=== PATIENT | male | born 1990 | race Caucasian/White ===

== ENCOUNTER 2018-10-09 19:52 | Emergency (ER) | payer MEDICAID, SELFPAY ==
--- NOTE | 2018-10-09 19:53 | W.ED.GENAD ---
Discharge Plan Disposition Patient Disposition: HOME Condition: Good Discharge Details Chief Complaint: OD/Poison Clinical Impression: Polysubstance abuse Reason For Visit: EDNA Primary Care Provider: Sheeba Joaquin ED Provider: Archie Osullivan Home Meds and New Rx's Prescriptions: No Action No Known Home Meds RF: 0 Discharge Instructions Instructions: Polysubstance Abuse (ED) Referrals: [facility] [Provider Group] Discharge Data Discharge Date/Time-TO BE ENTERED AT DEPARTURE: 10/09/18 21:08 Medical Decision Making <Raphael Peng MD - Last Filed: 10/21/18 23:01> 20:00 --28-year-old male here with altered mentation, presumed intoxication with polysubstance abuse. Patient admits using both heroin and cocaine. Potential for bath salt use as well. Patient is currently exhibiting what appears to be somewhat of a sympathomimetic toxidrome. Currently cooperative and agreeable to ED treatment. Plan to give Ativan 2 mg orally. Patient agreeable with this. Care signed out to Dr. Osullivan with plan to follow-up on UDS and reassess patient. HPI <Raphael Peng MD - Last Filed: 10/21/18 23:01> General Mode of arrival: ambulatory. Date/Time Provider Initiated Documentation: 10/09/18 19:52. Limitations to Documentation: no limitations. Information obtained by: patient. HPI Narrative: 28-year-old male with history of asthma, ADHD, presents with EMS with concern for potential substance abuse. Law enforcement had engaged with the patient prehospital called EMS given concern for intoxication. Patient admits to using both heroin and cocaine today. There is also concern to him is seen for potential bath salt use. No indication of trauma. Patient denies complaint. He has no pain at this time. Related Data Home Medications Medication Instructions Recorded Confirmed Unknown [No Known Home Meds] 10/09/18 10/09/18 Allergies Allergy/AdvReac Type Severity Reaction Status Date / Time No Known Allergies Allergy Unverified 10/09/18 21:05 Review of Systems <Raphael Peng MD - Last Filed: 10/21/18 23:01> Constitutional Denies body ache(s) ENT Denies dizziness Cardiovascular Denies chest pain and Denies dyspnea Respiratory Denies dyspnea Gastrointestinal Denies abdominal pain Musculoskeletal Denies arthralgias Neurologic Denies dizziness Psychiatric Denies hallucinations, Denies homicidal ideation and Denies suicidal ideation Exam <Raphael Peng MD - Last Filed: 10/21/18 23:01> Const General: cooperative and well developed Orientation: alert and awake [facility] Head: normocephalic and atraumatic Mouth: moist mucous membranes Eyes Conjunctivae: normal conjunctivae Sclera: normal sclerae Pupils: PERRL and pupil size bilaterally 3 Neck Neck: trachea midline and supple Resp Auscultation: clear to auscultation bilaterally, no rales, no rhonchi and no wheezes Cardio Jugular venous pressure: no JVD Rate: tachycardic Rhythm: regular rhythm GI Palpation: soft, not firm, no guarding, no masses, not rigid and nontender Skin General skin exam: no rashes or lesions noted Neuro General: alert, awake, oriented x3 and tone normal Extrem General: no edema Psych Appearance: grossly normal Speech and Movement: not agitated and pressured speech Mood: euphoric mood Affect: animated Attitude: cooperative Thought Content: no hallucinations Insight: insight good Judgment: fair Sign Out <Raphael Peng MD - Last Filed: 10/21/18 23:01> Sign Out Data: Sign Out Comment: follow-up uds. reassess patient for disposition. Last updated by Raphael Peng MD at 10/09/18 20:18 Post-Handoff Eval: Patient signed out to me for reevaluation. He had been brought in for possible drug overdose. Patient reports to me that he used cocaine this morning. Reports that he used heroin tonight. Denies other drugs other than the marijuana that he grows himself. He is very intermittent and cannot sit still but states that is just the way he is. He is awake and alert. His speech is normal. His gait is normal. He is oriented completely has capacity. He would like to go home. He is going to call for a ride. He is discharged with a friend in good condition.
[2018-10-09 19:54] VITALS: BP 137/75; PULSE 112; RESP 20; TEMP 37; O2SAT 95
[2018-10-09] MEDS: LORazepam 1 MG TAB 2 MG PO (19:57)
[2018-10-09 20:00] VITALS: RESP 18
--- NOTE | 2018-10-09 20:05 | ED.GENADUL_ITS ---
Discharge Plan Disposition Patient Disposition: HOME Condition: Good Discharge Details Chief Complaint: OD/Poison Clinical Impression: Polysubstance abuse Reason For Visit: EDNA Primary Care Provider: Sheeba Joaquin ED Provider: Archie Osullivan Home Meds and New Rx's Prescriptions: No Action No Known Home Meds RF: 0 Discharge Instructions Instructions: Polysubstance Abuse (ED) Referrals: [facility] [Provider Group] Discharge Data Discharge Date/Time-TO BE ENTERED AT DEPARTURE: 10/09/18 21:08 Medical Decision Making <Raphael Peng MD - Last Filed: 10/21/18 23:01> 20:00 --28-year-old male here with altered mentation, presumed intoxication with polysubstance abuse. Patient admits using both heroin and cocaine. Potential for bath salt use as well. Patient is currently exhibiting what appears to be somewhat of a sympathomimetic toxidrome. Currently cooperative and agreeable to ED treatment. Plan to give Ativan 2 mg orally. Patient agreeable with this. Care signed out to Dr. Osullivan with plan to follow-up on UDS and reassess patient. HPI <Raphael Peng MD - Last Filed: 10/21/18 23:01> General Mode of arrival: ambulatory . Date/Time Provider Initiated Documentation: 10/09/18 19:52 . Limitations to Documentation: no limitations . Information obtained by: patient . HPI Narrative: 28-year-old male with history of asthma, ADHD, presents with EMS with concern for potential substance abuse. Law enforcement had engaged with the patient prehospital called EMS given concern for intoxication. Patient admits to using both heroin and cocaine today. There is also concern to him is seen for potential bath salt use. No indication of trauma. Patient denies complaint. He has no pain at this time. Related Data Home Medications Medication Instructions Recorded Confirmed Unknown [No Known Home Meds] 10/09/18 10/09/18 Allergies Allergy/AdvReac Type Severity Reaction Status Date / Time No Known Allergies Allergy Unverified 10/09/18 21:05 Review of Systems <Raphael Peng MD - Last Filed: 10/21/18 23:01> Constitutional Denies body ache(s) ENT Denies dizziness Cardiovascular Denies chest pain and Denies dyspnea Respiratory Denies dyspnea Gastrointestinal Denies abdominal pain Musculoskeletal Denies arthralgias Neurologic Denies dizziness Psychiatric Denies hallucinations, Denies homicidal ideation and Denies suicidal ideation Exam <Raphael Peng MD - Last Filed: 10/21/18 23:01> Const General: cooperative and well developed Orientation: alert and awake [facility] Head: normocephalic and atraumatic Mouth: moist mucous membranes Eyes Conjunctivae: normal conjunctivae Sclera: normal sclerae Pupils: PERRL and pupil size bilaterally 3 Neck Neck: trachea midline and supple Resp Auscultation: clear to auscultation bilaterally, no rales, no rhonchi and no wheezes Cardio Jugular venous pressure: no JVD Rate: tachycardic Rhythm: regular rhythm GI Palpation: soft, not firm, no guarding, no masses, not rigid and nontender Skin General skin exam: no rashes or lesions noted Neuro General: alert, awake, oriented x3 and tone normal Extrem General: no edema Psych Appearance: grossly normal Speech and Movement: not agitated and pressured speech Mood: euphoric mood Affect: animated Attitude: cooperative Thought Content: no hallucinations Insight: insight good Judgment: fair Sign Out <Raphael Peng MD - Last Filed: 10/21/18 23:01> Sign Out Data: Sign Out Comment: follow-up uds. reassess patient for disposition. Last updated by Raphael Peng MD at 10/09/18 20:18 Post-Handoff Eval: Patient signed out to me for reevaluation. He had been brought in for possible drug overdose. Patient reports to me that he used cocaine this morning. Reports that he used heroin tonight. Denies other drugs other than the marijuana that he grows himself. He is very intermittent and cannot sit still but states that is just the way he is. He is awake and alert. His speech is normal. His gait is normal. He is oriented completely has capacity. He would like to go home. He is going to call for a ride. He is discharged with a friend in good condition.
[2018-10-09 21:00] LABS: *AMPHETAMINES SCREEN URINE Negative (Negative); *BARBITURATES SCREEN URINE Negative (Negative); *BENZODIAZEPINES SCREEN URINE Negative (Negative); Cannabinoids THC POSITIVE (Negative); Cocaine Screen,Urine POSITIVE (Negative); METHADONE URINE SCREEN Negative (Negative); OPIATES URINE SCREEN POSITIVE (Negative)
[2018-10-09 21:02] LABS: Tricyclic Antidepressants Negative (Negative)
== END 2018-10-09 21:08 | disposition home or self-care (01) ==
LOC: ER 21:18
PROVIDERS: Student in an Organized Health Care Education/Training Program; Emergency Provider Emergency Medicine; PCP Nurse Practitioner Family
DX: F19.10 Other psychoactive substance abuse, uncomplicated (principal)
CPT/HCPCS: 80307; 99283

== ENCOUNTER 2020-05-04 15:57 | Emergency (ER) | payer MEDICAID, SELFPAY ==
[2020-05-04 16:10] VITALS: BP 120/82; PULSE 70; RESP 16; TEMP 37.3; O2SAT 96
--- NOTE | 2020-05-04 16:33 | ED.GENADUL_ITS ---
Discharge Plan Disposition Patient Disposition: HOME Condition: Good Discharge Details Chief Complaint: GenMedical Clinical Impression: Well adult exam Primary Care Provider: Sheeba Joaquin ED Provider: Aundrea Mancia Home Meds and New Rx's Prescriptions: No Action No Known Home Meds RF: 0 Discharge Instructions Additional Instructions: Your labs are still pending. The results will be faxed to [facility]. Please stay in touch with them regarding inpatient admission. You will be called tomorrow to schedule appointment to be tested for COVID-19 in the outpatient tent. Call [facility] again tomorrow once COVID testing has been completed to ensure that all of the information has been faxed down to them and they have received it. Keep up the good work trying to get clean! Develop new or worsening symptoms please seek care urgently once again. Referrals: Sheeba Joaquin [Primary Care Provider] - Medical Decision Making Patient is a 30 year old male presenting today with c/c of needing medical clearance to go to [facility] for detox. He states he has been using heroin and wishes to become clean. He denies any feeling of withdrawal at this time. States that he last used last night. He denies any physical ailments. No suicidal or homicidal ideation. He denies any hallucinations. He does report feeling more depressed recently and attributes this to his drug use. Despite this reason, that he would like to get clean. States that he has attempted this historically and has had persistent relapses. He is hoping with more intensive therapy that he may be more successful at this point. Past medical history significant for ADHD. Reports he is been on Ritalin histo rically but has not been on this for quite some time. He does report feeling much improved when he is medicated. He denies any physical illness at this time. Is not had any hallucinations. No recent travel. Consulted with [facility]. They advised that they typically send patietns to the ED for medical clearance. They require COVID testing, CBC, CMP, UDS. Patient is requested that we fax all pertinent information obtained today to [facility]. Labs reviewed. CBC without significant abnormality. CMP without abnormality. UDS positive for THC. Patient is medically stable, do feel that he is appropriate to be treated at the [facility] likely do quite well with this. Patient was given return precautions. He was referred for outpatient COVID-19 testing. He will contact by tomorrow for bed placement. He was given return precautions. Patient does have a local primary care 9. Did he follow-up with her once he is done with his inpatient management. All his questions and concerns were addressed and he is in agreement this plan. HPI General Mode of arrival: ambulatory . Date/Time Provider Initiated Documentation: 05/04/20 16:33 . Limitations to Documentation: no limitations . Information obtained by: patient . HPI Narrative: Patient is a pleasant 30-year-old gentleman presenting today for medical clearance to go to [facility]. Patient reports that he uses heroin daily and is hoping to be able to detox. States that he had been clean for approximately a year and a half, was able to detox himself at home. However, about 6 months ago increased stressors caused him to relapse. He has been having difficulty since that time. States that he wants to be clean, wants to build to see his child. Patient works [employer]. Has attempted methadone treatment historically and did not find this helpful as he continually wean off of it did not feel supported to do so. Past medical history significant for ADHD. Denies any physical ailments at this time. Last used yesterday evening. Related Data Home Medications Medication Instructions Recorded Confirmed Unknown [No Known Home Meds] 10/09/18 05/04/20 Allergies Allergy/AdvReac Type Severity Reaction Status Date / Time No Known Allergies Allergy Unverified 05/04/20 16:44 General Stated Complaint: GenMedical DANIEL: 3 Review of Systems Constitutional Constitutional: Reports as per HPI, Denies chills, Denies fatigue, Denies fever(s), Denies headache(s) and Denies weakness Eyes Eyes: Denies change in vision ENT Ears, Nose, Mouth, and Throat: Denies headache(s) Cardiovascular Cardiovascular: Reports as per HPI, Denies chest pain, Denies lightheadedness, Denies dyspnea and Denies dyspnea on exertion Respiratory Respiratory: Reports as per HPI, Denies cough, Denies dyspnea and Denies dyspnea on exertion Gastrointestinal Gastrointestinal: Reports as per HPI, Denies abdominal pain, Denies change in bowel habits, Denies nausea and Denies vomiting Genitourinary Genitourinary: Denies system reviewed and no additional complaints, except as documented (denies any change in urinary habits) Musculoskeletal Musculoskeletal: Denies abnormal gait Integumentary/Breasts Skin/Breast: Reports as per HPI and Denies rash Neurologic Neurologic: Denies abnormal movements, Denies abnormal speech, Denies abnormal gait, Denies behavioral changes, Denies headache(s), Denies paresthesias and Denies weakness Psychiatric Psychiatric: Denies behavioral changes, Denies change in appetite, Reports depression (States that he has noticed being more sad recently), Reports difficulty concentrating (Baseline, associated ADHD, reports not being on any medications.), Denies hopelessness, Denies mood swings, Denies paranoia, Denies visual hallucinations, Denies hallucinations, Denies homicidal ideation and Denies suicidal ideation Endocrine Endocrine: Denies fatigue [facility] Social History Smoking/Tobacco Use Status: Current every day Drug use: Daily Substance use type: marijuana and heroin Details: daily marijuana relapsed 05/03/20 on heroin Do you feel safe at home: Yes Do you feel safe in your relationship?: Yes Exam Const General: cooperative, healthy appearing, comfortable, no acute distress, well developed and well groomed Nutritional Appearance: average body habitus and well nourished Orientation: alert and awake Eyes General: appearance normal, both eyes and all related structures Resp Effort & Inspection: normal respiratory effort, able to speak in complete sentences and no respiratory distress Auscultation: clear to auscultation bilaterally, no rales, no rhonchi and no wheezes Cardio Rate: regular rate Rhythm: regular rhythm Heart Sounds: S1 normal and S2 normal Skin General skin exam: no rashes or lesions noted Trauma: no lacerations or abrasions Neuro General: patient alert and patient awake Cognition: normal cognition Speech: speech normal Gait: normal gait Psych Appearance: grossly normal and well kempt Mental Status: mental status grossly normal Speech and Movement: speech and movement normal Mood: congruent mood Affect: normal affect Attitude: cooperative Thought Process: normal Thought Content: normal Insight: insight good Judgment: judgment good
[2020-05-04 17:25] LABS: Abs Immature Grans 0.01 k/cumm (0.0-0.09); Absolute Basophil Count 0.03 k/cumm (0.0-0.2); Absolute Eosinophil Count 0.03 k/cumm (0.0-0.7); Absolute Lymphocyte Count 2.47 k/cumm (1.2-3.4); Absolute Monocyte Count 0.53 k/cumm (0.11-0.7); Absolute Neutrophil Count 3.64 k/cumm (1.2-6.7); Basophils % 0.4; Eosinophils % 0.4; HCT 41.8 % (40.0-50.0); HGB 14.4 g/dL (13.5-17.5); Immature Grans % 0.1 %; Lymphocytes % 36.8; Mean Corp. HGB Concentration 34.4 g/dL (32.0-36.0); Mean Corpuscular Hemoglobin 29.7 pg (27.0-33.0); Mean Corpuscular Volume 86.2 fL (80-95); Mean Platelet Volume 8.3 fL (8.0-11.0); Monocytes % 7.9; Neutrophils % 54.4; Platelet Count 363 x1000/uL (130-400); RBC 4.85 m/cumm (4.50-6.00); RBC Distribution Width 13.8 % (11.8-14.1); White Blood Cell Count 6.71 k/cumm (4.4-10.8)
[2020-05-04 17:37] LABS: *AMPHETAMINES SCREEN URINE Negative (Negative); *BARBITURATES SCREEN URINE Negative (Negative); *BENZODIAZEPINES SCREEN URINE Negative (Negative); Cannabinoids THC POSITIVE (Negative); Cocaine Screen,Urine Negative (Negative); METHADONE URINE SCREEN Negative (Negative); OPIATES URINE SCREEN Negative (Negative); Tricyclic Antidepressants Negative (Negative)
[2020-05-04 17:38] LABS: ALT 41 U/L (16-63); AST 24 U/L (15-37); Albumin 4.1 g/dL (3.4-5.0); Alkaline Phosphatase 65 U/L (46-116); Anion Gap 10.1 mmol/L (3-11); BUN 10 mg/dL (7-18); Bilirubin, Total 0.5 mg/dL (0.2-1.0); CO2 24.9 mmol/L (21.0-32.0); CREATININE 1.04 mg/dL (0.70-1.30); Calcium 8.8 mg/dL (8.5-10.1); Chloride 105 mmol/L (98-107); Glucose 105 mg/dL (74-106); Potassium 3.9 mmol/L (3.5-5.1); Sodium 140 mmol/L (136-145); Total Protein 7.7 g/dL (6.4-8.2)
== END 2020-05-04 17:20 | disposition home or self-care (01) ==
PROVIDERS: Emergency Provider Physician Assistant; PCP Nurse Practitioner Family
DX: F11.10 Opioid abuse, uncomplicated (principal); F32.9 Major depressive disorder, single episode, unspecified
CPT/HCPCS: 80053; 80307; 99283; 85025

== ENCOUNTER 2020-05-05 09:42 | Outpatient (CLI) | payer MEDICAID, SELFPAY ==
[2020-05-06 02:56] LABS: COVID-19 RT-PCR UVMMC Result Negative (Negative)
== END 2020-05-05 10:02 ==
PROVIDERS: PCP Nurse Practitioner Family; Visit Provider Physician Assistant
DX: Z11.59 Encounter for screening for other viral diseases (principal)
CPT/HCPCS: U0003

== ENCOUNTER 2020-08-31 15:13 | Outpatient (REF) | payer MEDICAID, SELFPAY ==
[2020-09-02 14:42] LABS: Patient Race White; SARS-CoV-2 RNA Undetected (Undetected); SARS-CoV-2 Specimen Source Nasopharynx
== END 2020-08-31 15:33 ==
LOC: NCHCN 15:13
PROVIDERS: PCP Nurse Practitioner Family; Visit Provider Nurse Practitioner Family
DX: Z20.828 Contact with and (suspected) exposure to other viral communicable diseases (principal)
CPT/HCPCS: U0003

== ENCOUNTER 2020-11-26 11:57 | Emergency (ER) | payer MEDICAID, SELFPAY ==
--- NOTE | 2020-11-26 12:00 | DI.RAD_ITS ---
EXAM: XR HAND RT COMPLETE CLINICAL HISTORY: Hand pain TECHNIQUE: COMPARISON: CR LEFT HAND COMPLETE from 05/03/2017 FINDINGS: Four views were obtained. There is a mildly comminuted moderately displaced fracture of the head of the 2nd metacarpal. There is volar displacement of the distal fracture fragment. No additional frac ture is seen. IMPRESSION: RADIATION DOSE DELIVERED: Total DLP
[2020-11-26 12:02] VITALS: BP 153/87; PULSE 90; RESP 16; TEMP 37.5; O2SAT 94
--- NOTE | 2020-11-26 12:07 | W.ED.GENAD ---
Discharge Plan Disposition Patient Disposition: HOME Condition: Improving Discharge Details Chief Complaint: Orthopedic Clinical Impression: Fracture of metacarpal bone of right hand Primary Care Provider: Sheeba Joaquin ED Provider: Chaz Rodriguez Home Meds and New Rx's Prescriptions: No Action No Known Home Meds RF: 0 Discharge Instructions Instructions: Hand Fracture (ED) Additional Instructions: Elevate hand above the level of the heart to reduce pain and swelling. Please follow-up in orthopedic clinic. Call the office at [phone] for an appointment time. Tylenol and/or ibuprofen as needed for pain. Apply ice through the splint to reduce pain and swelling. Return to the ER for increasing pain, cold/blue/numbness of the fingertips, or any other acute concerns. Medical Decision Making 30-year-old male who punched a wall in anger last night. Now with right hand dorsum swelling and pain. Most concerning for an underlying fracture. No neuro or motor compromise. Given Tylenol, ice, referred for x-ray. He has a mildly comminuted moderately displaced fracture of the head of the second metacarpal. Discussed with Dr. Lay. Patient placed in a volar splint. He will follow-up in orthopedic clinic. Stable for outpatient management. HPI General Mode of arrival: ambulatory. Date/Time Provider Initiated Documentation: 11/26/20 12:03. Limitations to Documentation: no limitations. Information obtained by: patient. History of Present Illness 30 year old M presents to the emergency department with the chief complaint of R hand pain, described as moderate, Quality is described as dull and constant, and is localized to the right and upper extremity. Patient reports no radiation. Patient started experiencing this hour(s) and it has been constant. No relieving factors improve symptom(s), No exacerbating factors reported . Patient notes denies weakness. Patient did receive the following treatments prior to arrival, none Related Data Home Medications Medication Instructions Recorded Confirmed Unknown [No Known Home Meds] 10/09/18 11/26/20 Allergies Allergy/AdvReac Type Severity Reaction Status Date / Time No Known Allergies Allergy Unverified 11/26/20 12:05 General Stated Complaint: Orthopedic DANIEL: 3 Review of Systems Narrative: 6 systems reviewed and otherwise negative. No numbness or tingling. No other injury. [facility] Social History Smoking/Tobacco Use Status: Current every day Smoking risk assessment performed?: Yes Drug use: Daily Substance use type: marijuana Current gender identity: male Do you feel safe at home: Yes Do you feel safe in your relationship?: Yes Exam Narrative Exam Narrative: GEN: awake, alert, oriented 3. Pleasant, well groomed, interactive. HEAD: Normocephalic, atraumatic EYES: PERRL, EOMI NECK: Full ROM, no LIANET, no menigismus CHEST/RESP: Nontender EXT: Right hand grossly swollen primarily on the dorsum and overlying first and second metacarpals. Sensation is intact throughout. Capillary refill 2 seconds. Patient able to demonstrate ability to move in radial, ulnar, median distribution Neuro: Grossly normal neurologic exam, conversant, interactive. Psych: Speech fluent, thoughts congruent, affect normal Course Vital Signs Vital signs: Vital Signs Temperature 37.5 C 11/26/20 12:02 Pulse 90 11/26/20 12:02 Respiratory Rate 16 11/26/20 12:02 Blood Pressure 153/87 H 11/26/20 12:02 Pulse Oximetry 94 11/26/20 12:02 Temperature 37.5 C 11/26/20 12:02 Temperature Source Skin 11/26/20 12:02 Pulse 90 11/26/20 12:02 Respiratory Rate 16 11/26/20 12:02 Respiratory Effort Non-Labored 11/26/20 12:05 Blood Pressure 153/87 H 11/26/20 12:02 Blood Pressure Position Sitting 11/26/20 12:02 Pulse Oximetry 94 11/26/20 12:02 Oxygen Delivery Method Room Air 11/26/20 12:02 Oxygen Flow Rate 0 11/26/20 12:02 Pain Level 8 11/26/20 12:05 Procedures Orthopedic Splinting/Casting Injury #1: Side: right Upper Extremity Injury Location: hand
[2020-11-26] MEDS: Acetaminophen 500 MG TAB 1000 MG PO (12:15)
== END 2020-11-26 13:03 | disposition home or self-care (01) ==
PROVIDERS: Emergency Provider Emergency Medicine; PCP Nurse Practitioner Family
DX: S62.330A Displaced fracture of neck of second metacarpal bone, right hand, initial encounter for closed fracture (principal); W22.09XA Striking against other stationary object, initial encounter
CPT/HCPCS: 26600; 73130

== ENCOUNTER 2020-12-02 10:54 | Outpatient (CLI) | payer MEDICAID, SELFPAY ==
--- NOTE | 2020-12-02 10:45 | DI.RAD_ITS ---
EXAM: XR HAND RT LIMITED CLINICAL HISTORY: f/u fracture. TECHNIQUE: 2D digital imaging was performed. COMPARISON: CR XR HAND RT COMPLETE from 11/26/2020 FINDINGS: BONES: There is no change in alignment of the comminuted fracture of the right 2nd metacarpal. No rob ny destructive lesion is seen. JOINTS: No dislocation present. SOFT TISSUE: Normal. IMPRESSION: Stable right 2nd metacarpal fracture. DATA REPOSITORY: RADIATION DOSE DELIVERED:
== END 2020-12-02 11:14 ==
PROVIDERS: PCP Nurse Practitioner Family; Visit Provider Physician Assistant
DX: S62.300A Unspecified fracture of second metacarpal bone, right hand, initial encounter for closed fracture (principal)
CPT/HCPCS: 73120

== ENCOUNTER 2021-01-20 14:25 | Outpatient (CLI) | payer MEDICAID, SELFPAY ==
--- NOTE | 2021-01-20 10:45 | DI.RAD_ITS ---
EXAM: XR HAND RT LIMITED CLINICAL HISTORY: f/u fracture. TECHNIQUE: 2D digital imaging was performed. COMPARISON: CR XR HAND RT LIMITED from 12/02/2020 FINDINGS: BONES: There has been no change in alignment of the fracture involving the head of the 2nd metacarpal . No new fracture or dislocation is identified. No bony destructive lesion is seen. JOINTS: No dislocation present. SOFT TISSUE: Normal. IMPRESSION: Stable right 2nd metacarpal fracture. DATA REPOSITORY: RADIATION DOSE DELIVERED:
== END 2021-01-20 14:26 | disposition home or self-care (01) ==
LOC: DIORS 14:25
PROVIDERS: PCP Nurse Practitioner Family; Referring Provider Nurse Practitioner Family; Visit Provider Student in an Organized Health Care Education/Training Program
DX: S62.390A Other fracture of second metacarpal bone, right hand, initial encounter for closed fracture (principal)
CPT/HCPCS: 73120

== ENCOUNTER 2021-04-28 18:09 | Outpatient (CLI) | payer MEDICAID, SELFPAY ==
--- NOTE | 2021-04-28 | DI.RAD_ITS ---
Exam(s) XR SHOULDER RT COMPLETE 2+V EXAM: XR SHOULDER RT COMPLETE 2+V CLINICAL HISTORY: RT SHOULDER PAIN, M25.511. TECHNIQUE: 2D digital imaging was performed. COMPARISON: No exams were available for comparison FINDINGS: There is no evidence of fracture or glenohumeral dislocation. No soft tissue calcifications in the s ubacromial space. Coracoid process is intact. There is slight widening of the AC joint. The clavicular side of this joint appears slightly irregul ar, possibly significant. Acromial side of this joint appears unremarkable. Correlation with site o f tenderness is recommended. IMPRESSION: DATA REPOSITORY: RADIATION DOSE DELIVERED:
== END 2021-04-28 18:29 ==
PROVIDERS: PCP Nurse Practitioner Family; Visit Provider Physician Assistant Medical
DX: M25.511 Pain in right shoulder (principal)
CPT/HCPCS: 73030

== ENCOUNTER 2021-06-10 01:58 | Emergency (ER) | payer MEDICAID, SELFPAY ==
[2021-06-10 02:00] VITALS: BP 139/93; PULSE 71; RESP 20; TEMP 36.6; O2SAT 95
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
== END 2021-06-10 02:49 | disposition home or self-care (01) ==
PROVIDERS: Emergency Provider Student in an Organized Health Care Education/Training Program; PCP Nurse Practitioner Family
DX: S01.01XA Laceration without foreign body of scalp, initial encounter (principal); W25.XXXA Contact with sharp glass, initial encounter
CPT/HCPCS: 12001

== ENCOUNTER 2024-07-23 20:26 | Emergency (ER) | payer SELFPAY ==
[2024-07-23 20:28] VITALS: BP 156/91; PULSE 62; RESP 20; TEMP 37.3; O2SAT 98
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
[2024-07-23] MEDS: Acetaminophen 500 MG TAB 1000 MG PO (21:18)
[2024-07-23] MEDS: Ibuprofen 800 MG TAB PO (21:19)
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
== END 2024-07-23 21:33 | disposition home or self-care (01) ==
LOC: ER 21:52
PROVIDERS: Emergency Provider Emergency Medicine
DX: S42.021A Displaced fracture of shaft of right clavicle, initial encounter for closed fracture (principal); V86.56XA Driver of dirt bike or motor/cross bike injured in nontraffic accident, initial encounter; F17.210 Nicotine dependence, cigarettes, uncomplicated
CPT/HCPCS: 99283; 73000

== ENCOUNTER 2024-07-26 10:20 | Day surgery (SDC) | payer SELFPAY ==
[2024-07-26] VITALS (16 sets, daily range): BP systolic 144–166; BP diastolic 85–111; PULSE 56–104; RESP 10–27; TEMP 36–37.2; O2SAT 92–100; BMI 30.2
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
--- NOTE | 2024-07-26 07:18 | ROE_ITS ---
Date of service: 07/26/24 Time of Service: 14:30 Operative Note Operative Note DATE OF PROCEDURE: 07/26/24 PRE-OP DIAGNOSIS: [Right displaced clavicle fracture PROCEDURE: Right clavicle open reduction internal fixation, CPT #84075 SURGEON: Mike Lya LEGAL WRITING PROFESSOR: Josselyn Hernandez ANESTHESIA TYPE: Local By Surgeon, General LMA/ETT and Primary Nerve Block Refer to Anesthesia Record ESTIMATED BLOOD LOSS: 10 COMPLICATIONS: None Patient was transported to: PACU Patient's condition: stable Implants: Synthes 2.7mm VA LCP clavicle plate system LC3 with 4x medial & lateral locking screws, 1x medial & lateral cortex screws Indications: Please see complete medical record for details. Findings: Segmental comminuted displaced midshaft clavicle fracture Procedure Description: In the operating room, general anesthesia was induced. The patient was positioned supine on the operating room table. All bony prominences were well- padded. Preoperative antibiotics were administered. The clavicle was prepped and draped in the usual sterile fashion. The correct patient, procedure, and side of the procedure were all verified prior to incision. The planned incision was pre-injected with local anesthetic containing epinephri ne. The fracture site was approached raising full-thickness flaps down to bone. The incision was extended medially laterally as necessary. Care was taken to preserve soft tissue attachments. The fracture ends were identified. Bone forceps were used to provisionally obtain reduction. Lag screws were used to anatomically secure a posterior segmental fragment to the medial fracture and then an anterior segmental fragment to the lateral fracture. The combined medial and lateral fracture ends were then reduced together and provisionally held in place with a suture tape cerclage. There was slight bone loss anteriorly owing to some small comminuted fragments. An appropriate precontoured superior plate was applied with a longer option chosen to best span beyond segmental fracture fragments. It was compressed to bone with a cortex screw followed by sequentially filling with locking screws medially and laterally. The plate and fractures were all inspected and demonstrated excellent stability and fixation strength. AP, cephalic tilt, and [id number] fluoroscopy confirmed appropriate fracture reduction and hardware placement. The lateral cortex screw was switched to a slightly shorter length. The wound was copiously irrigated with normal saline. Deep and subcutaneous tissue was closed in a full-thickness watertight fashion with buried interrupted 2-0 Monocryl. Subcuticular layer was closed using running 3-0 Monocryl. Skin glue was applied over the incision followed by a Mepilex Band-Aid. The patient awoke from anesthesia without complication and was transferred to [facility] recovery room in a stable condition.
[2024-07-26] MEDS: Lactated Ringers 1,000 ML 30 ML IV (11:21)
[2024-07-26] MEDS: Acetaminophen 500 MG TAB 1000 MG PO (11:50)
[2024-07-26] MEDS: Celecoxib 200 MG CAP 400 MG PO (11:50)
--- NOTE | 2024-07-26 12:00 | DI.RAD_ITS ---
Exam(s) XR CLAVICLE RT EXAM: XR CLAVICLE RT CLINICAL HISTORY: RIGHT CLAVICLE FRACTURE TECHNIQUE: 2D and realtime digital imaging was performed. CONTRAST MATERIAL: Refer to procedure report. COMPARISON: CR,XR XR CLAVICLE RT from 07/23/2024 FINDINGS: Fluoroscopy was provided for Dr. Lay during the performance of a reduction and internal fixation of the right clavicular fracture. Please refer to the procedure report for complete details. Ka,r=1.52 mGy IMPRESSION: RADIATION DOSE DELIVERED: 0.0 0.0 0
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
--- NOTE | 2024-07-26 13:22 | W.ANESNERVE ---
Nerve Block Single Injection Procedure Date and Time Date Performed: 07/26/24 Procedure Start: 12:49 Location Where Procedure Performed Procedure Location: Day Surgery Unit Reason Performed: Postoperative Analgesia Requesting Provider: Mike Lay Timeout Performed Timeout Performed: Yes Monitoring Used ECG, Blood Pressure, SpO2 and ETCO2 Sterility Sterility: Hand Hygiene, Surgical Cap, Surgical Mask, Sterile Gloves and Chlorhexidine Sedation Given During Procedure Sedation Given (Indicate Dose Given): Versed IV Dose:: 2 mg Patient Mental Status Patient Mental Status: Sedate with meaningful communication Nerve Block 1st Nerve Block: Laterality: Right Block Type: Interscalene Ultrasound Image Saved?: Yes Needle / Catheter Used: 100mm SonoPlex II Local Anesthetic Bolus (Indicate Dose Given): Lidocaine used for local infiltration of skin, Injected in 3-5ml increments after negative blood aspiration, Bupivacaine 0.5% Dose:: 5 ml and Exparel Dose:: 5 ml Additives (Indicate Dose Given): Normal Saline (hydrodissection) Ultrasound: Sterile probe cover and gel used Nerve Stimulator: Supplement to Ultrasound use and No twitch or parasthesia noted < 0.5 mA Paresthesia: None Post Procedure Pain score (0-10): 0 Procedure Tolerated: No Complications and Patient tolerated well Procedure Outcome: Successful Performed By: Tu Aguilar 2nd Nerve Block: Laterality: Right Block Type: Superficial Cervical Plexus Ultrasound Image Saved?: Yes Needle / Catheter Used: 100mm SonoPlex II Local Anesthetic Bolus (Indicate Dose Given): Lidocaine used for local infiltration of skin, Injected in 3-5ml increments after negative blood aspiration, Bupivacaine 0.5% Dose:: 5 ml and Exparel Dose:: 5 ml Additives (Indicate Dose Given): Normal Saline (hydrodissection) Ultrasound: Sterile probe cover and gel used Nerve Stimulator: Supplement to Ultrasound use and No twitch or parasthesia noted < 0.5 mA Paresthesia: None Procedure Tolerated: No Complications and Patient tolerated well Procedure Outcome: Successful Performed By: Tu Aguilar
[2024-07-26] MEDS: ceFAZolin 2 GM/50 ML BAG IVPB (14:17)
[2024-07-26] MEDS: TRANEXAMIC ACID/SOD. CHL. 1,000 MG/100 ML BAG 600 MG IVPB (14:33)
[2024-07-26] MEDS: Bupivacaine 0.25% Pres-Free W/EPI 30 ML VIAL ×2 (14:43→16:03)
--- NOTE | 2024-07-26 17:18 | W.ANESPOSTOP ---
Postoperative Evaluation Date, Time and Location Date Performed: 07/26/24 Time Performed: 17:18 Patient Location: Day Surgery Unit Vital Signs Most Recent Imported Vital Signs: Most Recent Vital Signs Temp Pulse Resp BP Pulse Ox 36.8 C 70 16 153/95 H 94 07/26/24 16:53 07/26/24 16:53 07/26/24 16:53 07/26/24 16:53 07/26/24 16:53 Pain Score Most Recent Pain Score: Most Recent Pain Score Pain Level 0 07/26/24 16:53 Assessment Mental Status: Awake (Alert & Oriented to Patient Baseline) Airway and Respiratory Function: Patent airway with normal (patient baseline) respiratory exam Cardiovascular Function: Hemodynamically Stable Hydration Status: Adequately Hydrated Nausea & Vomiting: No Nausea or Vomiting Pain: Pt. Denies Any Pain Peripheral Nerve Block: Patient did not receive a nerve block
== END 2024-07-26 17:29 | disposition home or self-care (01) ==
LOC: SUR 10:20
PROVIDERS: Visit Provider Student in an Organized Health Care Education/Training Program
PROC: (CPT 23515; principal; 2024-07-26 12:45)
DX: V19.9XXA Pedal cyclist (driver) (passenger) injured in unspecified traffic accident, initial encounter; S42.022A Displaced fracture of shaft of left clavicle, initial encounter for closed fracture; S42.001A Fracture of unspecified part of right clavicle, initial encounter for closed fracture
CPT/HCPCS: 23515; 76000; 76942; 73000; C9290; J0665; J0690; J1100; J2250; J2405; J2704; J3475

== ENCOUNTER 2024-08-06 11:34 | Outpatient (CLI) | payer SELFPAY ==
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
== END 2024-08-06 11:35 | disposition home or self-care (01) ==
LOC: DIORS 11:35
PROVIDERS: Visit Provider Physician Assistant
DX: S42.021D Displaced fracture of shaft of right clavicle, subsequent encounter for fracture with routine healing (principal); V19.9XXD Pedal cyclist (driver) (passenger) injured in unspecified traffic accident, subsequent encounter
CPT/HCPCS: 73000

== ENCOUNTER 2024-09-17 15:31 | Outpatient (CLI) | payer SELFPAY ==
--- NOTE | 2024-09-17 10:45 | DI.RAD_ITS ---
Exam(s) XR CLAVICLE RT EXAM: XR CLAVICLE RT CLINICAL HISTORY: F/U FRACTURE. TECHNIQUE: 2D digital imaging was performed. Two images were obtained. AP and axial views were obta ined. COMPARISON: CR XR CLAVICLE RT from 08/06/2024 FINDINGS: BONES: There are stable post operative changes present. There is again seen a sideplate and screws t ransfixing the right clavicular fracture. No new fracture or dislocation. JOINTS: The joint spaces are well maintained. SOFT TISSUE: Normal. IMPRESSION: No change in alignment of the orthopedic hardware or right clavicular fracture. DATA REPOSITORY: RADIATION DOSE DELIVERED:
== END 2024-09-17 15:32 | disposition home or self-care (01) ==
LOC: DIORS 15:32
PROVIDERS: Visit Provider Student in an Organized Health Care Education/Training Program
DX: S42.001D Fracture of unspecified part of right clavicle, subsequent encounter for fracture with routine healing (principal); V19.9XXD Pedal cyclist (driver) (passenger) injured in unspecified traffic accident, subsequent encounter
CPT/HCPCS: 73000

== ENCOUNTER 2024-11-19 15:53 | Outpatient (CLI) | payer SELFPAY ==
--- NOTE | 2024-11-19 10:45 | DI.RAD_ITS ---
Exam(s) XR CLAVICLE RT EXAM: XR CLAVICLE RT CLINICAL HISTORY: F/U FRACTURE TECHNIQUE: 2D digital imaging was performed of the right clavicle. Two images were obtained. AP and axial views were obtained. COMPARISON: CR XR CLAVICLE RT from 09/17/2024 FINDINGS: BONES: There is again seen a sideplate and screws transfixing the fracture of the mid right clavicle. Given the slight changes in obliquity, there does not appear to be significant change in alignment of the fracture. The fracture line is still visualized. No bony destructive lesion is seen. JOINTS: No dislocation present. SOFT TISSUE: Normal IMPRESSION: Stable alignment of the right clavicular fracture. DATA REPOSITORY: RADIATION DOSE DELIVERED:
== END 2024-11-19 15:54 | disposition home or self-care (01) ==
LOC: DIORS 15:53
PROVIDERS: Visit Provider Student in an Organized Health Care Education/Training Program
DX: S42.021D Displaced fracture of shaft of right clavicle, subsequent encounter for fracture with routine healing (principal); V19.9XXD Pedal cyclist (driver) (passenger) injured in unspecified traffic accident, subsequent encounter; X58.XXXD Exposure to other specified factors, subsequent encounter
CPT/HCPCS: 73000